=== PATIENT | female | born 1960 | race Caucasian/White ===

== ENCOUNTER 2023-03-16 08:30 | Emergency (ER) | payer OTHER ==
[~2023-03-16] VITALS: Ht 165.1 cm; Wt 72.6 kg
[~2023-03-16 08:30] MED LIST: ONDA4ODT MM; Protonix40 MG PO; SUCR1 PO
[2023-03-16 09:11] VITALS: BP 149/98
[2023-03-16] MEDS ORDERED: GABA100 PO (09:14)
[2023-03-16] MEDS ORDERED: CELE100 PO (09:36)
[2023-03-16] MEDS ORDERED: Norco 5-325 Ta1 EACH PO (09:36)
== END 2023-03-16 09:49 | disposition home or self-care (01) ==
LOC: ER 08:30
DX: M25.551 Pain in right hip (principal); F17.210 Nicotine dependence, cigarettes, uncomplicated; Z88.1 Allergy status to other antibiotic agents
CPT/HCPCS: 99283

== ENCOUNTER → 2023-03-21 | Outpatient (CLI) | payer OTHER ==
[~2023-03-21] MED LIST changes: +CELE100 PO; +GABA100 PO; +Norco 5-325 Ta1 EACH PO
[2023-03-21 15:35] LABS: Albumin, Blood 3.5 g/dL (3.4-5.0); Albumin/Globulin Ratio 0.9 (0.8-1.8); Bilirubin, Total 0.3 mg/dL (0.1-1.0); Calcium, Blood 9.2 mg/dL (8.5-10.1); Creatinine, Blood 0.65 mg/dL (0.40-1.00); Globulin, Blood 3.8 g/dL (2.2-4.0); Potassium, Blood 4.3 mmol/L (3.5-5.5); Total Protein, Blood 7.3 g/dL (6.4-8.2)
== END ==
LOC: LAB 13:37 → LAB SHORT 13:37
PROVIDERS: Family Medicine
DX: M25.559 Pain in unspecified hip (principal)
CPT/HCPCS: 80053

== ENCOUNTER 2023-12-21 12:16 | Emergency (ER) | payer OTHER ==
[~2023-12-21] VITALS: Ht 165.1 cm; Wt 70.8 kg
[2023-12-21 12:39] VITALS: BP 146/83
[2023-12-21] MEDS ORDERED: TIZA4 PO (12:43)
[2023-12-21] MEDS ORDERED: CELEBREX200 MG PO (12:44)
== END 2023-12-21 13:54 | disposition home or self-care (01) ==
LOC: ER 12:16
DX: M25.551 Pain in right hip (principal); G89.29 Other chronic pain; F17.210 Nicotine dependence, cigarettes, uncomplicated; Z88.1 Allergy status to other antibiotic agents; Z79.899 Other long term (current) drug therapy
CPT/HCPCS: 99283

== ENCOUNTER 2024-02-10 14:53 | Emergency (ER) | payer OTHER ==
[~2024-02-10] VITALS: Ht 167.6 cm; Wt 76.7 kg
[~2024-02-10 14:53] MED LIST changes: +CELEBREX200 MG PO; +TIZA4 PO
[2024-02-10 16:51] LABS: Albumin, Blood 3.6 g/dL (3.4-5.0); Albumin/Globulin Ratio 0.9 (0.8-1.8); Bilirubin, Total 0.3 mg/dL (0.1-1.0); Bun/Creatinine Ratio 16.3 (12.0-20.0); Calcium, Blood 9.4 mg/dL (8.5-10.1); Creatinine, Blood 0.68 mg/dL (0.40-1.00); Potassium, Blood 3.9 mmol/L (3.5-5.5); Total Protein, Blood 7.6 g/dL (6.4-8.2)
[2024-02-10 17:35] LABS: BASOPHILS ABSOLUTE AUTO 0.06 K/mm3 (0.00-0.23); BASOPHILS PERCENT AUTO 1 % (0-2); EOSINOPHILS ABSOLUTE AUTO 0.19 K/mm3 (0.00-0.68); EOSINOPHILS PERCENT AUTO 4 % (0-6); Hematocrit 38.6 % (33.0-51.0); Hemoglobin 13.1 g/dL (11.5-16.0); IMMATURE GRAN ABSOLUTE AUTO 0.05 K/mm3 (0.00-0.10); IMMATURE GRAN PERCENT AUTO 1 % (0-1); LYMPHOCYTES ABSOLUTE AUTO 1.67 K/mm3 (0.84-5.20); LYMPHOCYTES PERCENT AUTO 31 % (21-46); MONOCYTES ABSOLUTE AUTO 0.62 K/mm3 (0.16-1.47); MONOCYTES PERCENT AUTO 11 % (4-13); Mean Corpuscular HGB 30.3 pg (26.0-34.0); Mean Corpuscular HGB Conc 33.9 g/dL (31.5-36.5); Mean Corpuscular Volume 89 fL (80-100); Mean Platelet Volume 9.5 fL (9.1-12.4); NEUTROPHILS ABSOLUTE AUTO 2.88 K/mm3 (1.96-9.15); NEUTROPHILS PERCENT AUTO 53 % (41-73); Platelet Count 291 K/mm3 (150-400); RDW Standard Deviation 42.7 fL (35.1-46.3); Red Blood Cell Count 4.32 M/mm3 (3.80-5.20); White Blood Cell Count 5.47 K/mm3 (4.00-11.30)
[2024-02-10] MEDS ORDERED: FentaNYL Citrate 50 MCG/ML 2 ML Injection IV ONE (23:45)
[2024-02-11] MEDS ORDERED: Voltaren100 GM TOP (00:27)
[2024-02-11 01:20] VITALS: BP 119/88
== END 2024-02-11 01:21 | disposition home or self-care (01) ==
LOC: ER 14:53
PROVIDERS: Physician Assistant
DX: I89.0 Lymphedema, not elsewhere classified (principal); M79.605 Pain in left leg; M79.604 Pain in right leg; Z88.1 Allergy status to other antibiotic agents; Z79.899 Other long term (current) drug therapy; Z79.1 Long term (current) use of non-steroidal anti-inflammatories (NSAID); M41.9 Scoliosis, unspecified; F17.210 Nicotine dependence, cigarettes, uncomplicated
CPT/HCPCS: 71046; 80053; 83880; 85025; 93970; 96374; 99284-25; J3010

== ENCOUNTER 2024-03-26 10:56 | Inpatient (IN) | payer OTHER ==
[~2024-03-26] VITALS: Ht 167.6 cm; Wt 72.6 kg
[~2024-03-26 10:56] MED LIST changes: +ASPI81CH PO; +Amitriptyline H25 MG PO; +BUPROPION XL150 M1 PO; +CELE200 PO; +FURO20 PO; +LYRICA50 M1 PO; +MELO7.5 PO; +PANT40 PO; +PROMETHAZINE12.5 M1 PO; +Percocet 5-3251 EACH PO; +SULFAMETHOXAZO1 EAC1 PO; +Voltaren100 GM TOP
[2024-03-26] MEDS ORDERED: Morphine Sulfate 4 MG/1 ML Injection IV ONE (11:10)
[2024-03-26] MEDS ORDERED: HYDROmorphone HCl/Pf 1MG SYR IV ONE (12:50)
[2024-03-26] MEDS ORDERED: Ketorolac Tromethamine 15mg Vial IV ONE (12:50)
[2024-03-26] MEDS ORDERED: FentaNYL Citrate 50 MCG/ML 2 ML Injection IV PRN (14:05)
[2024-03-26] MEDS ORDERED: FLU VACC TS2024-25(6MOS UP)/PF 45 MCG/0.5 ML SYRINGE IM ONE (14:05)
[2024-03-26] MEDS ORDERED: Promethazine HCl 25 MG Tab PO PRN (14:35)
[2024-03-26] MEDS ORDERED: TiZANidine HCl 4 MG Tab PO PRN (14:35)
[2024-03-26] MEDS ORDERED: OxyCODONE HCL 5 MG TAB PO PRN (14:35)
--- NOTE | 2024-03-26 15:08 | NUR ---
SN FRANCINE, CALLED FOR REPORT ON PATIENT. ROOM WILL BE READY IN ABOUT 20 MINUTES.
[2024-03-26 19:45] VITALS: BP 128/80
--- NOTE | 2024-03-26 20:36 | NUR ---
END OF SHIFT SUMMARY: A&Ox4. PLEASANT AND COOPERATIVE WITH CARE. CALLS APPROPRIATELY AND IS ABLE TO ADVOCATE NEEDS EFFECTIVELY. CONTINENT OF BOWEL AND BLADDER BUT PUREWICK IN PLACE SECONDARY TO IMPAIRED HIP REPLACEMENT. BEDREST D/T PAIN. PLANS FOR SURGICAL INTERVENTION IN AM. ORTHO @ BEDSIDE TO CONSULT. SURGICAL PACKET/CONSENT DONE BY ORTHO. MEDICATED PRN PAIN. BED IN LOWEST POSITION. CALL LIGHT WITHIN REACH. ALL NEEDS MET. REPORT TO ONCOMING NURSE.
[2024-03-26] MEDS ORDERED: Aspirin 81 MG Chew PO SCH (21:00)
[2024-03-26] MEDS ORDERED: Trimethoprim/Sulfamethoxazole DS Tab PO SCH (21:00)
[2024-03-26] MEDS ORDERED: Amitriptyline HCl 25 MG Tab PO SCH (21:00)
[2024-03-27] VITALS (20 sets, daily range): BP systolic 121–162; BP diastolic 79–109
--- NOTE | 2024-03-27 04:42 | NUR ---
SHIFT SUMMARY 63 YR F ADMITTED ON 03/26/24. FULL CODE. PT C/O SEVERE PAIN IN HER RIGHT HIP AND WAS MEDICATED PER EMAR WITH GOOD RESULTS. SHE WENT FOR A CT THIS SHIFT AND WAS VERY APPREHENSIVE ABOUT BEING MOVED IT CAUSES HER EXTREME PAIN. STAFF WAS EXTRA CAUTIOUS WITH HER AND SHE WAS VERY THANKFUL. SHE IS A&O X 4 AND IS ABLE TO MAKE HER NEEDS KNOWN. SHE WAS ABLE TO SLEEP FOR MOST OF THE NIGHT. SHE HAS BEEN NPO SINCE MIDNIGHT IN ANTICIPATION OF SURGERY TOMORROW. BED IN LOW POSITION AND CALL LIGHT IN REACH.
[2024-03-27] MEDS ORDERED: Pantoprazole Sodium 40 MG Tab PO SCH (06:00)
[2024-03-27] MEDS ORDERED: Ropivacaine 0.5% HCl/Pf 123.125 MG,EPINEPHrine HCL 0.25 MG,Ketorolac Tromethamine 15 MG... INFIL SCH (07:00)
[2024-03-27] MEDS ORDERED: Vancomycin HCL 1,000 MG in NS 250 ML IV SCH (07:00)
[2024-03-27] MEDS ORDERED: Tranexamic Acid 100 ML IV SCH (07:00)
[2024-03-27] MEDS ORDERED: CeFAZolin Sodium 2,000 MG in NS 100 ML IV SCH ×2 (07:00→21:00)
[2024-03-27] MEDS ORDERED: buPROPion HCL 150 MG TAB.SR.12H PO SCH (08:00)
[2024-03-27] MEDS ORDERED: Ferrous Sulfate 325 MG Tab PO SCH (08:00)
[2024-03-27] MEDS ORDERED: Ergocalciferol 50000 Intn'l Units PO SCH (09:00)
[2024-03-27] MEDS ORDERED: Celecoxib 100 MG Cap PO SCH (09:00)
[2024-03-27] MEDS ORDERED: Furosemide 20 MG Tab PO SCH (09:00)
--- NOTE | 2024-03-27 11:28 | NUR ---
PATIENT TO SURGERY, ALERT AND ORIENTED X3, CLEARLY MAKES NEEDS KNOWN
--- NOTE | 2024-03-27 11:38 | NUR ---
#20 PIV TO RIGHT AC C/D/I-FLUSHES WELL.
[2024-03-27] MEDS ORDERED: Lactated Ringer's 1,000 ML IV SCH ×2 (11:50→12:50)
[2024-03-27 11:55] LABS: Hematocrit 30.5 % (33.0-51.0); Hemoglobin 10.2 g/dL (11.5-16.0); Mean Corpuscular HGB 29.8 pg (26.0-34.0); Mean Corpuscular HGB Conc 33.4 g/dL (31.5-36.5); Mean Corpuscular Volume 89 fL (80-100); Platelet Count 399 K/mm3 (150-400); RDW Coefficient Variation 13.2 % (11.7-14.2); RDW Standard Deviation 43.1 fL (35.1-46.3); Red Blood Cell Count 3.42 M/mm3 (3.80-5.20); White Blood Cell Count 6.37 K/mm3 (4.00-11.30)
[2024-03-27] MEDS ORDERED: CeFAZolin Sodium 2,000 MG VIAL ONE (11:56)
[2024-03-27] MEDS ORDERED: Lactated Ringer's 1,000 ML IV ONE (11:57)
[2024-03-27] MEDS ORDERED: Tranexamic Acid 1,000 MG in NS 100 ML IV SCH (12:00)
[2024-03-27] MEDS ORDERED: IBUP800 PO (12:09)
[2024-03-27] MEDS ORDERED: propofoL 20 ML IV ONE (12:35)
[2024-03-27] MEDS ORDERED: Rocuronium Bromide 10 MG/ML 5ML Injection IV ONE ×2 (12:35→13:37)
[2024-03-27] MEDS ORDERED: FentaNYL Citrate 50 MCG/ML 2 ML Injection ONE ×2 (12:35→15:59)
[2024-03-27] MEDS ORDERED: DiphenhydrAMINE HCL 25 MG Cap PO PRN (12:45)
[2024-03-27] MEDS ORDERED: OxyCODONE HCL 5 MG TAB PO PRN ×2 (12:50)
[2024-03-27] MEDS ORDERED: Ondansetron HCl 2 MG / ML 2ML Vial IV PRN (12:50)
[2024-03-27] MEDS ORDERED: Bisacodyl 10 MG Supp PR PRN (12:50)
[2024-03-27] MEDS ORDERED: Metoclopramide HCl 5MG / ML 2ML Vial IV PRN (12:55)
[2024-03-27] MEDS ORDERED: FLU VACC TS2024-25(6MOS UP)/PF 45 MCG/0.5 ML SYRINGE IM SCH (12:55)
[2024-03-27] MEDS ORDERED: HYDROmorphone HCl/Pf 1MG SYR IV PRN (12:55)
[2024-03-27] MEDS ORDERED: Magnesium Hydroxide Conc 10 ML UDC PO PRN (12:55)
[2024-03-27] MEDS ORDERED: HYDROmorphone HCl/Pf 1MG SYR ONE ×3 (13:02→15:59)
[2024-03-27] MEDS ORDERED: Vancomycin HCl 1000 MG ADDvantage ONE (13:05)
[2024-03-27] MEDS ORDERED: Dexamethasone Sod Phos 10 MG/ML 1ML VIAL ONE (14:34)
[2024-03-27] MEDS ORDERED: Metoclopramide HCl 5MG / ML 2ML Vial ONE (14:34)
[2024-03-27] MEDS ORDERED: Ondansetron HCl 2 MG / ML 2ML Vial ONE (14:34)
[2024-03-27] MEDS ORDERED: Neostigmine Methylsulfate 5MG/5ML SYR ONE (15:26)
[2024-03-27] MEDS ORDERED: Glycopyrrolate 0.2 MG/ML 5ML VIAL ONE (15:26)
[2024-03-27] MEDS ORDERED: Acetaminophen 500 MG Tab PO SCH (16:00)
--- NOTE | 2024-03-27 16:46 | NUR ---
ARRIVAL FROM PACU PT ARRIVED FROM PACU ON HER BED, ORIENTED TO HER NEW ROOM, INCISIONS R HIP/RLE C/D/I, DISCUSSED PLAN OF CARE FOR THE EVENING, PROVIDED HER IWTH WATER AND JELLO, POLAR PACK IN PLACE, NO NEEDS AT THIS TIME.
[2024-03-27] MEDS ORDERED: Ketorolac Tromethamine 15mg Vial IV SCH (18:00)
[2024-03-27] MEDS ORDERED: Docusate Sodium 100 MG Cap PO SCH (21:00)
[2024-03-28] MEDS ORDERED: Vancomycin HCL 1,000 MG in NS 250 ML IV SCH
[2024-03-28 03:03] VITALS: BP 125/81
[2024-03-28 05:16] LABS: BASOPHILS ABSOLUTE AUTO 0.06 K/mm3 (0.00-0.23); BASOPHILS PERCENT AUTO 1 % (0-2); EOSINOPHILS ABSOLUTE AUTO 0.34 K/mm3 (0.00-0.68); EOSINOPHILS PERCENT AUTO 4 % (0-6); Hematocrit 24.5 % (33.0-51.0); Hemoglobin 8.2 g/dL (11.5-16.0); IMMATURE GRAN ABSOLUTE AUTO 0.07 K/mm3 (0.00-0.10); IMMATURE GRAN PERCENT AUTO 1 % (0-1); LYMPHOCYTES ABSOLUTE AUTO 0.97 K/mm3 (0.84-5.20); LYMPHOCYTES PERCENT AUTO 10 % (21-46); MONOCYTES ABSOLUTE AUTO 1.14 K/mm3 (0.16-1.47); MONOCYTES PERCENT AUTO 12 % (4-13); Mean Corpuscular HGB 29.9 pg (26.0-34.0); Mean Corpuscular HGB Conc 33.5 g/dL (31.5-36.5); Mean Corpuscular Volume 89 fL (80-100); Mean Platelet Volume 8.1 fL (9.1-12.4); NEUTROPHILS ABSOLUTE AUTO 6.79 K/mm3 (1.96-9.15); NEUTROPHILS PERCENT AUTO 73 % (41-73); Platelet Count 373 K/mm3 (150-400); RDW Coefficient Variation 13.2 % (11.7-14.2); RDW Standard Deviation 43.2 fL (35.1-46.3); Red Blood Cell Count 2.74 M/mm3 (3.80-5.20); White Blood Cell Count 9.37 K/mm3 (4.00-11.30)
--- NOTE | 2024-03-28 05:17 | NUR ---
SHIFT SUMMARY PT HAS RESTED T/O THE NIGHT. S/P RIGHT HIP REVISION. SURGICAL SITE WNL WITH BULKY DRESSING IN PLACE. PT VERY PAINFUL WITH MOVEMENT AND TURNING. PT HAS VOIDED POST OP, BUT URINE OUTPUT LOW. PT ABLE TO TOLERATE INTAKE, BUT REPORTS THAT SHE HAS NOT DRANK MUCH. PT ENCOURAGED TO CONTINUE TO TAKE IN FLUIDS. LR STARTED. PAIN MANAGED WITH MEDS PER ORDERS. POST OP VITALS STABLE. BED IN LOWEST POSITION, CALL LIGHT WITHIN REACH.
[2024-03-28 06:00] LABS: Bun/Creatinine Ratio 20.4 (12.0-20.0); Calcium, Blood 8.5 mg/dL (8.5-10.1); Creatinine, Blood 0.74 mg/dL (0.40-1.00); Magnesium, Blood 1.9 mg/dL (1.6-2.4); Potassium, Blood 4.9 mmol/L (3.5-5.5)
--- NOTE | 2024-03-28 06:12 | NUR ---
RETENTION PT VOIDED ANOTHER 100 MLS THIS AM. 225 MLS TOTAL OUT THIS SHIFT. PT ENC TO TAKE IN FLUIDS. IVF INFUSING. PT BLADDER SCAN THIS AM REVEALED 840 MLS IN BLADDER. PT REFUSES CATHETER AT THIS TIME. PT STATES SHE WANTS TO DRINK SOME COFFEE AND ALLOW IT TO HAPPEN NATURALLY. PT EDUCATED AND I NOTIFIED HER THAT I WOULD NOTIFY PROVIDER. CALLED AND NOTIFIED OF PT RETENTION, AND OF PT REFUSAL FOR CATHETER. HE STATES TO REPEAT BLADDER SCAN IN THREE HOURS AND ENC CERVANTES IF PT STILL UABLE TO VOID.
[2024-03-28 07:08] VITALS: BP 122/77
[2024-03-28] MEDS ORDERED: Aspirin 81 MG Chew PO SCH (09:00)
[2024-03-28] MEDS ORDERED: Trimethoprim/Sulfamethoxazole DS Tab PO SCH (09:00)
[2024-03-28 14:39] VITALS: BP 119/72
--- NOTE | 2024-03-28 18:46 | NUR ---
SHIFT SUMMARY PT IS POD1 FOR R HIP REVISION. DRESSINGS C/D/I. CAP REFILL IN R TOES 2 SECS, PT ABLE TO WIGGLE TOES. VSS. PT ABLE TO AMBULATE 1 ASST W/ FWW AND GB, VOIDING, TOLERATING REG DIET. PT REPORTS PAIN IS TOLERABLE AT REST BUT HAS OCCASIONAL MUSCLE SPASMS SHE RATES 8/10. PT MEDICATED W/ SCHEDULED AND PRN PAIN MEDS, CURRENTLY REPORTS PAIN TOLERABLE. VSS. USING CALL LIGHT APPROPRIATELY.
[2024-03-28 19:25] VITALS: BP 126/74
[2024-03-29 02:43] VITALS: BP 120/78
--- NOTE | 2024-03-29 04:25 | NUR ---
SHIFT SUMMARY NO ACUTE CHANGES TO REPORT OVERNIGHT. INTERMITTENT PAIN IN RIGHT HIP/RLE, INCREASES WITH MOVEMENT. PAIN RELEIVED WITH MEDS PER EMAR. SURGICAL SITE WNL. PLAN OF CARE REMAINS UNCHANGED. BED IN LOWEST POSITION, CALL LIGHT WITHIN REACH.
[2024-03-29 05:41] LABS: Hematocrit 23.4 % (33.0-51.0); Hemoglobin 7.7 g/dL (11.5-16.0); Mean Corpuscular HGB Conc 32.9 g/dL (31.5-36.5); Mean Corpuscular Volume 91 fL (80-100); Mean Platelet Volume 8.3 fL (9.1-12.4); Platelet Count 361 K/mm3 (150-400); RDW Coefficient Variation 13.4 % (11.7-14.2); RDW Standard Deviation 43.7 fL (35.1-46.3); Red Blood Cell Count 2.57 M/mm3 (3.80-5.20); White Blood Cell Count 9.16 K/mm3 (4.00-11.30)
[2024-03-29 06:12] LABS: Bun/Creatinine Ratio 25.5 (12.0-20.0); Calcium, Blood 8.8 mg/dL (8.5-10.1); Creatinine, Blood 0.83 mg/dL (0.40-1.00); Potassium, Blood 4.5 mmol/L (3.5-5.5)
[2024-03-29 07:21] VITALS: BP 124/73
[2024-03-29] MEDS ORDERED: Baclofen 10 MG Tab PO SCH (14:00)
[2024-03-29 14:16] VITALS: BP 120/70
--- NOTE | 2024-03-29 16:51 | NUR ---
SHIFT SUMMARY PT IS POD2 FOR R HIP REVISION. DRESSINGS C/D/I. PT REPORTS DECREASE IN PAIN AFTER BACLOFEN GIVEN PER EMAR, STILL REQUIRING PO OXY PER EMAR WELL. VSS. CAP REFILL IN R TOES 2 SECS, PT ABLE TO WIGGLE TOES. AMBULATING 1 ASST TO BSC W/ FWW AND GB. VOIDING, TOLERATING PO REG DIET. PT CALLING APPROPRIATELY. PT WISHES TO GO TO SNF AFTER DISCHARGE. PT CURRENTLY RESTING W/ CALL LIGHT IN REACH.
[2024-03-29 19:48] VITALS: BP 117/72
[2024-03-30 03:11] VITALS: BP 135/84
--- NOTE | 2024-03-30 04:22 | NUR ---
SHIFT SUMMARY STORM WAS ALERT AND FULLY ORIENTED ON ASSESMENT. PT HIP PAINFUL AND REQUIRING MEDICATION TO CONTROL PAIN. DRESSINGS TO R HIP C/D/I. DURING THE NIGHT PT REPORTS MOVING WHILE ASLEEP AND FEELING A "POP" IN HER HIP WHICH WAS VERY PAINFUL. XRAY ORDERED AND PENDING INTERPERETATION. NO OTHER ACUTE EVENTS OR NOTED CHANGES TO PT CONDITION. PT RESTING IN BED WITH CALL LIGHT IN REACH.
[2024-03-30 05:27] LABS: Hematocrit 22.1 % (33.0-51.0); Hemoglobin 7.5 g/dL (11.5-16.0); Mean Corpuscular HGB 30.6 pg (26.0-34.0); Mean Corpuscular HGB Conc 33.9 g/dL (31.5-36.5); Mean Corpuscular Volume 90 fL (80-100); Mean Platelet Volume 8.4 fL (9.1-12.4); Platelet Count 379 K/mm3 (150-400); RDW Coefficient Variation 13.6 % (11.7-14.2); RDW Standard Deviation 44.1 fL (35.1-46.3); Red Blood Cell Count 2.45 M/mm3 (3.80-5.20); White Blood Cell Count 8.92 K/mm3 (4.00-11.30)
[2024-03-30 07:07] VITALS: BP 137/81
--- NOTE | 2024-03-30 07:45 | NUR ---
REPORT FROM TYRA WRIGHT. ASSUMING CARE.
[2024-03-30] MEDS ORDERED: Iron Dextran 50 MG / ML 2ML Vial IV ONE (08:00)
[2024-03-30] MEDS ORDERED: Iron Dextran 975 MG in NS 250 ML IV ONE (09:00)
[2024-03-30 10:07] VITALS: BP 129/74
--- NOTE | 2024-03-30 10:15 | NUR ---
CALL TO PHARMACY FOR INFED INFUSION.
--- NOTE | 2024-03-30 10:45 | NUR ---
CALL TO PHARMACY FOR INFED.
--- NOTE | 2024-03-30 10:45 | NUR ---
DR RUSSELL CALLED INTO UNIT. UPDATED ON PT STATUS. XRAY REVIEWED. PT CLEARED TO AMBULATE AND WORK WITH THERAPY. PT HAS NO NEEDS AT THIS TIME. CALL LIGHT IN REACH.
--- NOTE | 2024-03-30 11:29 | NUR ---
PT WORKING WITH OT NOW. HOLDING IV MEDS AT THIS TIME
--- NOTE | 2024-03-30 14:45 | NUR ---
DR RUSSELL IN ROOM FOR EVAL. DRESSINGS CHANGED BY PROVIDER. INCISIONS APPEAR TO BE HEALING WELL.
[2024-03-30 15:39] VITALS: BP 131/81
[2024-03-30 19:14] VITALS: BP 128/77
[2024-03-31 05:34] LABS: Hemoglobin 7.7 g/dL (11.5-16.0); Mean Corpuscular HGB 30.3 pg (26.0-34.0); Mean Corpuscular HGB Conc 33.5 g/dL (31.5-36.5); Mean Corpuscular Volume 91 fL (80-100); Mean Platelet Volume 8.3 fL (9.1-12.4); Platelet Count 416 K/mm3 (150-400); RDW Coefficient Variation 13.9 % (11.7-14.2); RDW Standard Deviation 44.9 fL (35.1-46.3); Red Blood Cell Count 2.54 M/mm3 (3.80-5.20); White Blood Cell Count 8.67 K/mm3 (4.00-11.30)
--- NOTE | 2024-03-31 05:36 | NUR ---
SHIFT SUMMARY NOC. PT POD 4 FOR REVISON OF RIGHT HIP SURGERY. PT'S AQUACEL X3 ARE C/D/I. PT CONTINUES TO HAVE PAIN/MUSCLE SPASMS IN RLE. PT REPORTS RELIEF WITH OXY, BACLOFEN, TORADOL, AND TYLENOL. PT TOE TOUCH WT BEARING ON RLE, TRANSFERS WELL TO BSC. PT VOIDING URINE AND TOLERATING PO INTAKE. CALL LIGHT IN REACH.
[2024-03-31 06:33] VITALS: BP 128/86
[2024-03-31 07:26] VITALS: BP 140/86
--- NOTE | 2024-03-31 09:36 | NUR ---
MORNING NOTE THIS RN ASSUMED CARE AT APPROX 0715. PATIENT SLEEPING DURING INITIAL ENCOUNTER, EASILY AROUSABLE WITH VERBAL STIMULI. ALERT AND ORIENTED X4. COMMUNICATES NEEDS EFFECTIVELY. VSS. REPORTING 7-8/10 PAIN TO R HIP - MEDICATED PER EMAR WITH SCHEDULED PO MANAGEMENT AND IV DILAUDID. PATIENT REPORTING RELIEF. DESCRIBES PAIN "MUSCLE SPASMS." AQUACEL DRESSINGS TO R HIP W/ MINIMAL SEROSANGUINOUS DRAINAGE - OTHERWISE C/D/I. WORKED WITH PHYSICAL THERAPY THIS MORNING - UP WITH 1P FWW GB. TOE TOUCH WEIGHT BEARING STATUS AND POSTERIOR HIP PRECAUTIONS. CURRENTLY SITTING IN CHAIR. DENIES NEEDS AT THIS TIME. CALL LIGHT IN REACH.
[2024-03-31 14:39] VITALS: BP 116/72
[2024-03-31] MEDS ORDERED: Calcium Carbonate 1,250 MG TABLET PO SCH (17:00)
--- NOTE | 2024-03-31 18:08 | NUR ---
SHIFT SUMMARY NO ACUTE CHANGES SINCE PREVIOUS DOCUMENTATION. VSS. PAIN MANAGED PER EMAR AND WITH COOLING DEVICE. AQUACEL DRESSING C/D/I. UP WITH 1P FWW GB TO CHAIR OR BSC. WORKED WITH PHYSICAL AND OCCUPATIONAL THERAPY TODAY. VOIDING. CALL LIGHT IN REACH. PATIENT CURRENTLY SITTING IN RECLINER CHAIR EATING DINNER. WILL CONTINUE TO MONITOR AND REPORT TO ONCOMING RN.
[2024-03-31 19:47] VITALS: BP 118/73
[2024-04-01] MEDS ORDERED: Polyethylene Glycol 3350 17 gm PO SCH (04:55)
[2024-04-01] MEDS ORDERED: Magnesium Hydroxide Conc 10 ML UDC PO PRN (04:55)
[2024-04-01 05:02] VITALS: BP 143/86
[2024-04-01 05:15] LABS: Hematocrit 24.9 % (33.0-51.0); Mean Corpuscular HGB 30.2 pg (26.0-34.0); Mean Corpuscular HGB Conc 32.1 g/dL (31.5-36.5); Mean Corpuscular Volume 94 fL (80-100); Platelet Count 464 K/mm3 (150-400); RDW Coefficient Variation 14.2 % (11.7-14.2); Red Blood Cell Count 2.65 M/mm3 (3.80-5.20); White Blood Cell Count 7.26 K/mm3 (4.00-11.30)
--- NOTE | 2024-04-01 05:24 | NUR ---
SHIFT SUMMARY NO ACUTE CHANGES TO REPORT OVERNIGHT. SURGICAL SITE WNL. PT UP IN THE RECLINER AT THE BEGINNING OF THE SHIFT, AND AMBULATED BACK TO BED WITH ASSIST WHERE SHE RESTED T/O THE NIGHT. INTERMITTENT PAIN MANAGED WITH MEDS PER EMAR. PLAN OF CARE REMAINS UNCHANGED. PLAN IS FOR DC SNF. BED IN LOWEST POSITION, CALL LIGHT WITHIN REACH.
[2024-04-01 05:41] LABS: Bun/Creatinine Ratio 16.2 (12.0-20.0); Calcium, Blood 9.1 mg/dL (8.5-10.1); Creatinine, Blood 0.8 mg/dL (0.40-1.00); Potassium, Blood 4.5 mmol/L (3.5-5.5)
[2024-04-01 08:14] VITALS: BP 145/78
[2024-04-01] MEDS ORDERED: Cyclobenzaprine HCl 10 MG Tab PO PRN (09:30)
[2024-04-01 13:17] LABS: SARS-Cov-2 (COVID-19) PCR, MMC NEGATIVE (NEGATIVE)
[2024-04-01 14:19] VITALS: BP 119/78
--- NOTE | 2024-04-01 15:45 | NUR ---
DISCHARGE: REPORT PASSED TO RN AT [facility]. PT IV DC'D BY RN STUDENT. TRANSPORT HERE AT 1540 AND PT ABLE TO TRANSFER WELL TO WHEELCHAIR. PT LEFT UNIT AT 1546, TRANSPORTER GIVEN DC PACKET
[2024-04-01] MEDS ORDERED: Aspirin 81 MG Chew PO SCH (21:00)
== END 2024-04-01 15:38 | DRG 467 ==
LOC: ER 10:56 → SURS 10:57 → MEDS 15:48 → ER 03-27 09:30 → MEDS 03-27 13:04 → SURS 03-27 13:04 → MEDS 03-27 13:05 → SURS 03-27 15:43
PROVIDERS: Orthopaedic Surgery; ADMIT Internal Medicine
PROC: 0SPR0JZ Removal of Synthetic Substitute from Right Hip Joint, Femoral Surface, Open Approach (ICD-10-PCS; 2024-03-27)
PROC: 0SRR03A Replacement of Right Hip Joint, Femoral Surface with Ceramic Synthetic Substitute, Uncemented, Open Approach (ICD-10-PCS; principal; 2024-03-27 12:30)
DX: S72.001A Fracture of unspecified part of neck of right femur, initial encounter for closed fracture (principal); D62 Acute posthemorrhagic anemia; M97.01XA Periprosthetic fracture around internal prosthetic right hip joint, initial encounter; W18.30XA Fall on same level, unspecified, initial encounter; Z88.8 Allergy status to other drugs, medicaments and biological substances; K44.9 Diaphragmatic hernia without obstruction or gangrene; K21.9 Gastro-esophageal reflux disease without esophagitis; M81.0 Age-related osteoporosis without current pathological fracture; R33.9 Retention of urine, unspecified; D50.9 Iron deficiency anemia, unspecified; E55.9 Vitamin D deficiency, unspecified; Z96.641 Presence of right artificial hip joint; Z90.49 Acquired absence of other specified parts of digestive tract; Z98.890 Other specified postprocedural states; Z87.891 Personal history of nicotine dependence; Z79.899 Other long term (current) drug therapy; Z79.82 Long term (current) use of aspirin; Z79.891 Long term (current) use of opiate analgesic; Z47.1 Aftercare following joint replacement surgery
CPT/HCPCS: 36415; 73502; 73700; 80048; 82306; 82728; 83540; 83550; 83735; 85025; 85027; 96374-59; 96375-59; 97110; 97110-CQ; 97112; 97116; 97116-CQ; 97161; 97162; 97165; 97530; 97535; 99284-25; A9270; C1713; C1776; G0378; J0690; J1100; J1171; J1750; J1885; J2270; J2405; J2704; J2710; J2765; J3010; J3370; J7050; J7120; U0002